=== PATIENT | female | born 1985 | race Two or more races ===

== ENCOUNTER 2024-06-27 02:13 | Emergency (ER) | payer MEDICAID, SELFPAY ==
[2024-06-27 02:13] VITALS: BMI 39.9
[2024-06-27 02:20] VITALS: BP 145/86; PULSE 135; RESP 22; TEMP 36.7; O2SAT 98
--- NOTE | 2024-06-27 02:34 | XR_ITS ---
Examination: AP chest single view Technique: Portable AP upright chest single view Exam date and time: June 27, 2024, 0010 hrs. Indications: Coughing 3 weeks Findings: Normal heart size. No lobar pneumonia. Intact osseous structures Impression: No pneumonia identified
--- NOTE | 2024-06-27 02:44 | PD.ASTHM ---
ED Asthma RME/HPI General Chief Complaint: Asthma Stated Complaint: ASTHMA, SOB Time Seen by Provider: 06/27/24 02:34 Arrival date/time: 06/27/24 02:13 38F with history of asthma presents to ED with 3 weeks of productive/wet cough and intermittent SOB. Limitations: no limitations Related Data Home Medications ?Medication ?Instructions ?Recorded ?Confirmed albuterol sulfate 90 mcg/actuation 2 puff inhalation Q4H PRN sob 08/26/20 08/26/20 aerosol inhaler Previous Rx's ?Medication ?Instructions ?Recorded montelukast 10 mg tablet 10 mg PO QDAY #30 tabs 08/26/20 (Singulair) prednisone 50 mg tablet 50 mg PO QDAY #5 tabs 08/26/20 albuterol sulfate 90 mcg/actuation 2 puff inhalation Q6H PRN 06/27/24 aerosol inhaler (Ventolin HFA) shortness of breath or wheezing #8.5 grams amoxicillin 875 mg tablet 875 mg PO TID 5 days #15 tabs 06/27/24 azithromycin 250 mg tablet See Rx Instructions PO .COMPLEX #6 06/27/24 tabs prednisone 50 mg tablet 50 mg PO QDAY 5 days #5 tabs 06/27/24 Allergies Allergy/AdvReac Type Severity Reaction Status Date / Time No Known Allergies Allergy Verified 06/27/24 02:13 Review of Systems Review of Systems Systems Reviewed: All systems reviewed, normal except as documented Constitutional Constitutional: Reports system reviewed and no additional complaints, except as documented, Denies fever(s) and Denies headache(s) ENT Ears, Nose, Mouth, and Throat: Denies disequilibrium and Denies headache(s) Cardiovascular Cardiovascular: Reports system reviewed and no additional complaints, except as documented, Denies chest pain and Reports dyspnea Respiratory Respiratory: Reports system reviewed and no additional complaints, except as documented, Reports as per HPI, Reports cough and Reports dyspnea Gastrointestinal Gastrointestinal: Reports system reviewed and no additional complaints, except as documented, Denies abdominal pain, Denies nausea and Denies vomiting Neurologic Neurologic: Reports system reviewed and no additional complaints, except as documented, Denies confusion, Denies disequilibrium and Denies headache(s) Psychiatric Psychiatric: Denies confusion Past Medical History Past Medical History CARDIAC: Negative Congestive Heart Failure RESPIRATORY: Positive Asthma (uses inhaler); Negative Chronic Obstructive Pulmonary Disease (COPD) GENITOURINARY: Negative Renal Disease ENDOCRINE: Negative Diabetes Mellitus Type 1 or Diabetes Mellitus Type 2 Social History SMOKING STATUS: Never smoker ED Exam General Limitations: Present no limitations General appearance: Present alert and in no apparent distress Head Head exam: Present atraumatic Eye Eye exam: Present normal appearance, PERRL and EOMI ENT ENT exam: Present normal exam, normal oropharynx and mucous membranes moist Neck Neck exam: Present normal inspection, full ROM and trachea midline Chest Chest inspection: Present normal inspection and symmetric chest wall rise Respiratory Respiratory exam: Present wheezes and accessory muscle use Cardiovascular Cardiovascular exam: Present regular rate, normal rhythm and normal heart sounds Abdominal Exam Abdominal exam: Present soft and normal bowel sounds Extremities Exam Extremities exam: Present normal inspection and full ROM Back Exam Back exam: Present normal inspection and full ROM Neurological Exam Neurological exam: Present alert, oriented X3 and CN II-XII intact Psychiatric Psychiatric exam: Present normal affect and normal mood Skin Skin exam: Present warm, dry, intact and normal color Course Quality Measures none Orders Category Date Time Status XR chest 1V portable Stat Exams 06/27/24 02:34 Ordered Budesonide Rt [Pulmicort Rt Kya] Med 06/27/24 02:34 Once 0.5 mg INH X1 ONE Ipratropium [place] Rt Kya [Atrovent Rt Kya] Med 06/27/24 02:34 Once 1 mg INH X1 ONE Levalbuterol Rt [Xopenex Rt Kya] Med 06/27/24 02:34 Once 5 mg INH X1 ONE MethylPREDNISolone.* [SoluMEDROL Inj] Med 06/27/24 02:34 Once 125 mg IM X1 ONE Sodium Chloride Rt Kya 0.9% [NS Rt Kya 0.9%] Med 06/27/24 02:34 Ordered 3 ml INH PRN PRN Vital Signs Vital signs: Vital Signs Temperature 98.1 F 06/27/24 02:20 Pulse Rate 135 H 06/27/24 02:20 Respiratory Rate 22 H 06/27/24 02:20 Blood Pressure 145/86 H 06/27/24 02:20 Pulse Oximetry (%) 98 06/27/24 02:20 Oxygen Delivery Method Room Air 06/27/24 02:20 Asthma MDM Narrative MDM Narrative:: 38F with history of asthma presents to ED with 3 weeks of productive/wet cough and intermittent SOB. Physical exam reveals diffuse wheezing. Increased WOB. Patient is afebrile, calm, and alert. Wet CXR read reveals some PNA pending official report. Meds relieved symptoms. Patient data External records reviewed:: [facility] previous records Clinical information provided by:: patient Social determinants that could affect healthcare access:: none Patient has the following chronic illnesses:: asthma How is presenting disease/condition affected by chronic disease/condition?: exacerbated by Evaluation data The following diagnostics were reviewed and interpreted by me:: radiology exam(s) Lab and/or radiology exams considered but not ordered:: ordered Interpretation Summary: above Medications / Prescriptions Medications or Prescriptions considered but not ordered:: ordered Medication administrations:: Medication Administration History Budesonide (Budesonide Rt 0.5 Mg/2 Ml Nebu) 0.5 mg INH X1 ONE Stop: 06/27/24 02:35 Ipratropium [place] (Ipratropium Rt 0.5 Mg/ 2.5 Ml Nebu) 1 mg INH X1 ONE Stop: 06/27/24 02:35 Levalbuterol HCl (Levalbuterol Rt 1.25 Mg/0.5 Ml Nebu) 5 mg INH X1 ONE Stop: 06/27/24 02:35 Methylprednisolone Sodium Succinate (Methylprednisolone Sod Succ 62.5 Mg/Ml 2ml Vial) 125 mg IM X1 ONE Stop: 06/27/24 02:35 Sodium Chloride (Sodium Chloride Rt Kya 0.9% 3 Ml Nebu) 3 ml INH PRN PRN PRN Reason: SOLN Stop: 07/27/24 02:33 Consultations Consultation(s) initiated? (list below): No Diagnosis Differential diagnosis asthma: Acute exacerbation, Status asthmaticus, Acute asthmatic bronchitis, PE, Pneumonia, COPD exacerbation, Pulmonary edema systolic, Pulmonary edema dystolic, ARDS, Pneumothorax and Foreign body in trachea Most likely diagnosis given after review of the tests above:: CAP and asthma exacerbation Admission Indicated Admission indicated?: not indicated Admission Request Was there a request for admission?: No Disposition Plan Disposition Plan: Discharge Discharge Attestation Discharge Attestation: The patient and all family members were given an opportunity to ask questions and understood the discharge instructions. Discharge instructions specifically effects, indications for sooner follow up or return to the emergency department, and the expected course of current diagnosis. Patient condition: Stable Discharge Plan Plan Patient Disposition: HOME (Self Care) Disposition Comment: Stable Prescriptions/Referrals Prescriptions/Med Rec: New amoxicillin 875 mg tablet 875 mg PO TID 5 Days Qty: 15 0RF azithromycin 250 mg tablet See Rx Instructions .ROUTE .COMPLEX Qty: 6 0RF Rx Instructions: For 250 mg dose pack: take 500 mg today (day 1), then 250 mg for 4 days (days 2-5) prednisone 50 mg tablet 50 mg PO QDAY 5 Days Qty: 5 0RF albuterol sulfate [Ventolin HFA] 90 mcg/actuation HFA aerosol inhaler 2 puff inhalation Q6H PRN (Reason: shortness of breath or wheezing) Qty: 8.5 0RF No Action albuterol sulfate 90 mcg/actuation Hfa Aerosol Inhaler 2 puff INHALATION Q4H PRN (Reason: sob) prednisone 50 mg tablet 50 mg PO QDAY Qty: 5 0RF montelukast [Singulair] 10 mg tablet 10 mg PO QDAY Qty: 30 0RF Referrals: Julian Horan MD [Primary Care Provider] - In 1 week Problem List Clinical Impression: Asthma with acute exacerbation, CAP (community acquired pneumonia) Patient/Caregiver Discharge Instructions Education Materials: ED Pneumonia (Adult) Additional Instructions: Please follow-up with PCP within 24-48 hours and return immediately if symptoms worsen. Print Language: Sami Stand Alone Forms: Patient Portal Info Letter OSWALDO/RUTH Supervising Physician OSWALDO/RUTH Supervising Physician: Dr. Estrada
[2024-06-27] MEDS: IPRATROPIUM RT 0.5 MG/ 2.5 ML NEBU 1 MG INH (02:48)
[2024-06-27] MEDS: LEVALBUTEROL RT 1.25 MG/0.5 ML NEBU 5 MG INH (02:48)
[2024-06-27] MEDS: BUDESONIDE RT 0.5 MG/2 ML NEBU INH (02:48)
[2024-06-27] MEDS: SODIUM CHLORIDE RT SOL 0.9% 3 ML NEBU INH (02:49)
[2024-06-27 02:54] VITALS: PULSE 124; RESP 18; O2SAT 100
--- NOTE | 2024-06-27 02:56 | PC.LAC ---
RT at the bedside for breathing tx.
[2024-06-27] MEDS: MethylPREDNISolone SOD SUCC 62.5 MG/ML 2ML VIAL 125 MG IM (03:16)
[2024-06-27 05:40] VITALS: BP 130/71; PULSE 104; RESP 16; TEMP 36.8; O2SAT 99
== END 2024-06-27 05:42 | disposition home or self-care (01) ==
PROVIDERS: Emergency Provider Emergency Medicine; PCP Family Medicine
DX: J45.901 Unspecified asthma with (acute) exacerbation (principal); J18.9 Pneumonia, unspecified organism
CPT/HCPCS: 71045; 94644; 96372; 99283; J2919